=== PATIENT | male | born 1960 | race Caucasian/White ===

== ENCOUNTER 2017-06-20 12:10 | Day surgery (SDC) | payer OTHER ==
[~2017-06-20] VITALS: Ht 188 cm; Wt 113.2 kg
--- NOTE | ~2017-06-20 | OR ---
PATIENT'S NAME: CHIARA HERNANDEZ [facility] AGE: 57 Y [address] ROOM: [place] [address] LOCATION: [facility] [place] ADMIT DATE: 06/20/2017 OR/Procedure Report DISCHARGE DATE: FAMILY PHYSICIAN: Eduardo Das MD ATTENDING PHYSICIAN: Kalen OSPINA SURGEON: Kashmir Ospina MD LIBRARY MANAGER: DATE OF PROCEDURE: 06/20/2017 PREOPERATIVE DIAGNOSIS: Acute appendicitis. POSTOPERATIVE DIAGNOSIS: Acute appendicitis. OPERATION PERFORMED: Laparoscopic appendectomy. ANESTHESIA: General endotracheal anesthesia. ESTIMATED BLOOD LOSS: 5 mL. SPECIMENS: Appendix. COMPLICATIONS: None. COUNTS: Sponge and needle count at the end of the case were correct. DESCRIPTION OF OPERATION: After informed consent was obtained, the patient was taken to the operating room and intubated. A Peters catheter was placed. His anterior abdominal wall was thoroughly prepped and draped. Surgical time- out was performed prior to initiation of the operation. Local anesthetic consisting of a 50:50 mix of 1% lidocaine with 0.5% Marcaine with epinephrine was infiltrated prior to stab incisions for port placement. Veress needle technique was used to establish pneumoperitoneum through an incision just below the umbilicus in the midline. Insufflation was achieved. A 530 camera was placed through the 5 mm port. No injury to subjacent bowel or other structures were identified. A 5 mm suprapubic midline port and an 11 mm left lower quadrant port were placed under camera visualization. The patient was placed in a Trendelenburg position with the left shoulder down. There was mildly inflamed bowel in the right lower quadrant. The cecum was grossly normal and inflamed appendix was identified. The mesoappendix was divided with a Harmonic scalpel taking care to avoid injury to cecum and terminal ileum. Endoloop x2 were placed over the appendiceal base. The appendiceal base was normal in appearance. The specimen was divided with a Harmonic and extracted using an EndoCatch bag through the 11 mm port. There was no irrigation performed. The skin incisions were closed with Monocryl and Dermabond. The patient was extubated in the operating room. Peters catheter PATIENT'S NAME: CHIARA HERNANDEZ [facility] AGE: 57 Y [address] ROOM: [place] [address] LOCATION: [facility] [place] ADMIT DATE: 06/20/2017 OR/Procedure Report DISCHARGE DATE: FAMILY PHYSICIAN: Eduardo Das MD ATTENDING PHYSICIAN: Kalen OSPINA was removed. The patient was taken to the Postanesthesia Care Unit in stable condition. KASHMIR OSPINA MD CM/gretchen /[id number] d: t: 06/26/17 0726, OPERATIVE SUMMARY
--- NOTE | ~2017-06-20 | HP ---
PATIENT'S NAME: CHIARA HERNANDEZ [facility] AGE: 57 Y [address] ROOM: [place] [address] LOCATION: [facility] [place] ADMIT DATE: 06/20/2017 History & Physical DISCHARGE DATE: FAMILY PHYSICIAN: Eduardo Das MD ATTENDING PHYSICIAN: Kalen STOVER DATE OF SERVICE: HISTORY OF PRESENT ILLNESS: This is a 57-year-old male who was awoken this morning at 2 a.m. with sudden onset of right lower quadrant pain. He noted no relief with compresses. He was unable to get back to sleep. He presented to the emergency department for further evaluation after several hours. REVIEW OF SYSTEMS: His review of systems is positive for subjective chills without fever. He has positive anorexia. He denied chest pain, shortness of breath, nausea, vomiting, diarrhea, or constipation. PAST MEDICAL HISTORY: None. PAST SURGICAL HISTORY: Left knee scope, left wrist ORIF, open left and right inguinal hernia repair. MEDICATIONS: None. ALLERGIES: PENICILLIN, FOR WHICH HE DEVELOPS A RASH. SOCIAL HISTORY: He is and lives about 20 minutes away. PHYSICAL EXAMINATION: VITAL SIGNS: He has a low-grade temperature elevation, his blood pressure is normal, his heart rate is normal. HEENT: He is anicteric. GENERAL: He is easily conversant and in no clear distress. His is present at bedside during the entire encounter. CARDIAC: Normal. LUNGS: Clear. ABDOMEN: Nondistended with normal bowel sounds. He has inguinal incisions consistent with surgical history. He has focal tenderness in the right lower quadrant without diffuse peritonitis. There are no changes to the overlying PATIENT'S NAME: CHIARA HRENANDEZ [facility] AGE: 57 Y [address] ROOM: [place] [id number] LOCATION: [facility] [place] ADMIT DATE: 06/20/2017 History & Physical DISCHARGE DATE: FAMILY PHYSICIAN: Eduardo Das MD ATTENDING PHYSICIAN: Kalen STOVER skin. The Rovsing sign is negative. The Psoas sign is negative. The heel tap is negative. He has no inguinal hernia. EXTREMITIES: Normal. LABORATORY DATA: His laboratory results have been reviewed. His CT scan images and radiology interpretation have been reviewed. IMPRESSION: Acute appendicitis. PLAN: Laparoscopic appendectomy followed by inpatient admission. MAGDI STOVER MD CM/gretchen /[id number] D: 98 HISTORY & PHYSICAL
--- NOTE | ~2017-06-20 | ER ---
PATIENT'S NAME: CHIARA HERNANDEZ [facility] AGE: 57 Y [address] ROOM: [address] [address] LOCATION: [facility] ADMIT DATE: 06/20/2017 ER/Outpatient Report DISCHARGE DATE: FAMILY PHYSICIAN: Eduardo Das MD ATTENDING PHYSICIAN: Kalen OSPINA Time of Arrival: 1210 hours. Time of Evaluation: 1220 hours. CHIEF COMPLAINT: Abdominal pain. HISTORY OF PRESENT ILLNESS: This is a 57-year-old male who presents to the ER with right lower quadrant abdominal pain that woke him up from sleep around 2 o'clock this morning. The patient ate last night and felt fine. He did try a little bit of water and some coffee earlier this morning at 07:30, but was not feeling well, so he did not eat. He states it makes him feel nauseated. He did have some shakes and chills when he woke up with this pain in the middle of the night. The patient states his pain kind of wraps around to his flank area, but he has no troubles with bowel movements and no troubles with urination. He states he has never had any pain like this before. He did go to [facility] today and they told him he should come to the emergency room to be evaluated. ALLERGIES: NO KNOWN ALLERGIES. MEDICATIONS: Please see medication list nurse's notes. PAST MEDICAL HISTORY: Hypertension and arthritis. PAST SURGICAL HISTORY: Hernia repair x2 and left wrist surgery. SOCIAL HISTORY: Denies smoking, drug, or alcohol use. REVIEW OF SYSTEMS: All systems reviewed and were negative with the exception of those discussed in the HPI. PHYSICAL EXAMINATION: VITAL SIGNS: Height 6 feet and 2 inches stated, weight 113.2 kg taken, blood PATIENT'S NAME: CHIARA HERNANDEZ [facility] AGE: 57 Y [address] ROOM: [address] [address] LOCATION: [facility] ADMIT DATE: 06/20/2017 ER/Outpatient Report DISCHARGE DATE: FAMILY PHYSICIAN: Eduardo Das MD ATTENDING PHYSICIAN: Kalen OSPINA pressure is 161/82, pulse 60, respirations 18, temperature 99.2 degrees tympanically, and saturations 96% on room air. [place] Coma Score is 15. GENERAL: Alert, calm, well-developed male, in mild distress. HEENT: Head: Normocephalic. He does display moist mucous membranes. Eyes: Pupils are equal and reactive to light. LUNGS: Clear to auscultation bilaterally. No wheezes or crackles. HEART: Regular rate and rhythm. ABDOMEN: Soft. He does have tenderness to palpation in his right lower quadrant. He does have some rebound tenderness. He does not guard. He has good bowel sounds throughout. No masses are palpated. EXTREMITIES: No clubbing or cyanosis. He has full range of motion of all limbs. SKIN: Warm, dry, and intact. LABORATORY DATA AND X-RAYS: CBC: White count was 11.2, hemoglobin was 15.2, platelets 184, and ANC was 10.1. CMS was unremarkable. Urinalysis was negative for any infection. We did do a CT scan with IV contrast, it does show acute appendicitis, it was reported by Radiology. IMPRESSION: Acute appendicitis. ASSESSMENT AND PLAN: We did monitor the patient here and he did not want anything for pain while he was here, but we did give him some IV fluids while he rested comfortably. I did call the surgeon, Dr. Ospina, who will be coming to evaluate him in the ER and be taking him to surgery. The patient and the patient's understand and agree with care. MARILIA LEWIS PA-C FOR MD ALEJANDRO JESUS/gretchen /[id number] d: 06/20/17 2304 t: 06/24/17 0913, OUTPATIENT REPORT
--- NOTE | ~2017-06-20 | DS ---
PATIENT'S NAME: CHIARA HERNANDEZ [facility] AGE: 57 Y [address] ROOM: [place] [address] LOCATION: [facility] [place] [facility] [place] ADMIT DATE: 06/20/2017 Discharge Summary DISCHARGE DATE: 06/21/2017 FAMILY PHYSICIAN: Eduardo Das MD ATTENDING PHYSICIAN: Kashmir Ospina ADMITTING DIAGNOSIS: Acute appendicitis. DISCHARGE DIAGNOSIS: Acute appendicitis. ADMITTING PHYSICIAN: Kashmir Ospina MD. OPERATION PERFORMED IN THIS ADMISSION: Laparoscopic appendectomy. HOSPITAL COURSE: The patient was admitted from the emergency department with signs and symptoms consistent with acute appendicitis. He was taken to the operating room for an uncomplicated laparoscopic appendectomy. He was transferred to the brian postoperatively. There, he tolerated a regular diet. He had good pain control with oral medications. He was able to ambulate independently. He was voiding spontaneously at the time of discharge. The patient was discharged to outpatient care. KASHMIR OSPINA MD CM/gretchen /[id number] d: t: 06/26/17 0721, DISCHARGE SUMMARY
[2017-06-20 12:47] LABS: HEMATOCRIT 43.7 % (37.0-53.0); HEMOGLOBIN 15.2 g/dL (12.0-17.0); MCH 31.5 pg (27.0-34.0); MCHC 34.8 gm/dL (32.0-36.5); MCV 90.7 fl (83.0-98.0); MPV 9.4 fl (9.4-12.4); PLATELET COUNT 184 K/uL (150-450); RBC 4.82 M/uL (4.00-6.00); RDW-CV 11.6 % (11.9-14.6); WBC 11.2 K/uL (4.0-11.0)
[2017-06-20 12:50] LABS: BILIRUBIN URINE NEGATIVE (NEGATIVE); BLOOD URINE NEGATIVE /UL (NEGATIVE); COLOR URINE YELLOW (YELLOW); GLUCOSE URINE NEGATIVE (NEGATIVE); KETONE URINE NEGATIVE (NEGATIVE); LEUKOCYTES URINE NEGATIVE /UL (NEGATIVE); NITRITE URINE NEGATIVE (NEGATIVE); PROTEIN URINE NEGATIVE (NEGATIVE); TURBIDITY URINE CLEAR (CLEAR); UROBILINOGEN URINE NORMAL (NORMAL)
[2017-06-20 13:13] LABS: ANION GAP 10.2 (10.0-19.0); CALCIUM 8.9 mg/dL (8.5-10.5); CREATININE 1.2 mg/dL (0.6-1.3); POTASSIUM 4.2 mMol/L (3.7-5.1); TOTAL BILIRUBIN 0.9 mg/dL (0.0-1.5); TOTAL PROTEIN 7.3 g/dL (6.0-8.4)
[2017-06-20 13:20] LABS: ABSOLUTE NEUTROPHIL CT (ANC) 10.1 K/uL (1.4-9.0); BANDED NEUTROPHIL # 0.6 K/uL (0.0-0.1); BANDED NEUTROPHILS % 5 %; LYMPHOCYTE # 0.1 K/uL (0.8-4.0); LYMPHOCYTE % 1 %; SEGMENTED NEUTROPHIL # 9.5 K/uL (1.4-9.0); SEGMENTED NEUTROPHIL % 85 %
[2017-06-20] MEDS ORDERED: TUMERIC PO (15:02)
--- NOTE | 2017-06-20 18:15 | NUR ---
PT.HERE FROM PACU AT 1740.IS A/O.SL IN LT.ANTICUBITAL.WAS UP TO BR & VOIDED.HAS 3 ABD.STAB SITES THAT ARE COVERED WITH DURABOND.IS COMFORTABLE AT THIS TIME RATING ABD PAIN AT A 2-3.TAKING CL.LIQ WELL WITH NO N/V.IS PLEASANT.PROB HOME TOMORROW.
--- NOTE | 2017-06-20 19:56 | NUR ---
EDITED SHORT STAY DATA BASE TO REFLECT THAT PATIENT DOES NOT HAVE LATEX ALLERGY. HARD COPY OF LATEX SCREENING IN EBP TAB ON CHART.
--- NOTE | 2017-06-21 04:54 | NUR ---
SSignificant Event: PATIENT IS ALERT AND ORIENTATED. AMBULATES WITH STANDBY ASSIST. HAD APPY THIS AM STAB SITES X3 GLUED ON LOWER ABDOMEN. VSS WNL ON 1 L O2. EATING AND TAKING FLUIDS WELL. IV TO L UPPER FA SL. WALKED IN HALLS X 3 THIS SHIFT. VOIDED X3. PORCOCET GIVEN AT 2207 WITH RELIEF. PLAN IS TO GO HOME IN AM. PLEASANT AND COOPERATIVE WITH CARES Follow up:
[2017-06-21] MEDS ORDERED: NORCO 5-325 TA1 EACH PO (10:03)
[2017-06-21] MEDS ORDERED: PERCOCET 5-3251 EACH PO (10:07)
--- NOTE | 2017-06-21 10:44 | NUR ---
Significant event: Up in room and mahmood ambulating. Percocet 1 tab at 1025, dismissed to home with at 1030. Abdominal incisions approximated.
== END 2017-06-21 10:35 | disposition disaster alternative care site (69) ==
LOC: GMED 12:10 → GSDC 14:20 → GMSU 14:21 → GSDC 06-21 10:35
PROVIDERS: Family Medicine
PROC: 0DTJ4ZZ Resection of Appendix, Percutaneous Endoscopic Approach (ICD-10-PCS; principal; 2017-06-20)
DX: K35.80 Unspecified acute appendicitis (principal); I10 Essential (primary) hypertension; Z88.0 Allergy status to penicillin
CPT/HCPCS: J2543; J7030; J7050; Q9967